=== PATIENT | male | born 2005 | race Caucasian/White ===

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

== ENCOUNTER 2025-01-17 10:27 | Outpatient (REF) | payer MEDICAID, SELFPAY ==
--- OUTSIDE RECORDS SUMMARY | 2025-01-17 12:09 | XMS_ITS | Clinical Summary ---
Author Organization [employer] Address [address] [facility] [address] [place] [address] Care Team Providers Care Wood Scrap Handler Name Role Phone Cat Vanegas MD Primary Care Provider [phone] Allergies No known active allergies Medications albuterol 108 (90 Base) MCG/ACT inhaler Inhale 2 puffs every 4 (four) hours if needed for wheezing or shortness of breath. 18 g 1 07/27/20 23 Active loratadine (Claritin) 10 MG tabletIndications: Rash Take 1 tablet (10 mg) by mouth Once per day. 30 tablet 3 12/21/19 25 026 Active SUMAtriptan (Imitrex) 25 MG tabletIndications: Chronic nonintractable headache, unspecified headache type Take 1 tablet (25 mg) by mouth 1 (one) time if needed for migraine for up to 9 doses. May repeat dose once in 2 hours if no relief. Do not exceed 2 doses in 24 hours. Take with naproxen 9 tablet 12/21/19 25 Active naproxen (Naprosyn) 500 MG tabletIndications: Chronic nonintractable headache, unspecified headache type Take 1 tablet (500 mg) by mouth 2 times daily. At onset of headache with sumatriptan. Take with food 60 tablet 12/21/19 25 025 Active cetirizine (ZyrTEC) 10 MG tabletIndications: Rash Take 1 tablet (10 mg) by mouth Once per day. Prn. 30 tablet 10/04/19 25 025 Discontin ued(Alter warner therapy) Active Problems Problem Noted Date Diagnosed Date Mild intermittent asthma without complication Encounters Date Type Department Care Team Description 01/17/2025 10:00 AM EDT Office Visit [facility] [address] [place] [address] Pradip Rebollar MD Viral URI (Primary Dx) 01/17/2025 Travel 12/20/2024 4:00 PM EDT Office Visit [facility] [address] [place] [address] Adelia Maldonado NP Rash (Primary Dx); Chronic nonintractable headache, unspecified headache type 12/20/2024 Travel 10/19/2024 Population Health Risk Score [facility] () Department [address] [place] [id number] Provider, Population Health Generic from Last 3 Months Social History Tobacco Use Types Packs/Day Years Used Date Smoking Tobacco: Never Smokeless Tobacco: Never Tobacco Cessation:Counseling Given: Not Answered Sex and Gender Information Value Date Recorded Sex Assigned at Male 06/07/2022 10:17 AM EDT Legal Sex Male 10:17 AM EDT Gender Identity Male 06/07/2022 10:17 AM EDT Sexual Orientation Straight 06/07/2022 10 :17 AM EDT Last Filed Vital Signs Vital Sign Reading Time Taken Comments Blood Pressure 130/80 01/17/2025 9:59 AM EDT Pulse 90 01/17/2025 9:59 AM EDT Temperature 34.8 ??C (94.7 ??F) 01/17/2025 9:59 AM ED T Respiratory Rate 18 01/17/2025 9:59 AM EDT Oxygen Saturation 98% 01/17/2025 9:59 AM EDT Inhaled Oxygen Concentration - - Weight 87.7 kg (193 lb 6.4 oz) 01/17/2025 9:59 A M EDT Height 172.7 cm (5' 8 ) 01/17/2025 9:59 AM EDT Body Mass Index 29.41 01/17/2025 9:59 AM EDT Plan of Treatment Upcoming Encounters Date Type Department Care Team (Late st Contact Info) Description 03/28/2025 9:00 AM EDT Office Visit [facility] [address] [place] [address] Felipa Cardoza, OD [address] [place] [address] Health Maintenance Due Date Last Done Comments Chlamydia and Gonorrhea Screening 2004 Depression Screening 2004 HIV Screening 2004 SDOH Screening 2004 Disability Screening 2004 Hepatitis B Vaccines (4 of 4 - 4-dose series) 2004 2004, 2004, 2004 Alcohol/Substance Use Screening 2016 Family Planning (PISQ) 2019 Meningococcal B Vaccine (1 of 2 - Standard) 2020 Hepatitis C Screening 2022 Pneumococcal Vaccine: Pediatrics (0 to 5 Years) and At-Risk Patients (6 to 49) Years) (1 of 2 - PCV) 2023 08/03/2005, 2004, 2004, Additional history exists COVID-19 Vaccine (4 - 2023- season) 2024 09/23/2021, 03/17/2021, 02/24/2021 Influenza Vaccine (Season Ended) 2025 07/31/2020, 04/23/2016, 11/05/2015, Additional history exists DTaP/Tdap/Td Vaccines (7 - Td or Tdap) 11/04/2025 11/05/2015, 09/03/2008, 08/03/2005, Additional history exists Tobacco Screening 12/20/2025 12/20/2024 Zoster Vaccines (1 of 2) 2054 RSV Patients and Patients Aged 60 years or older (1 - 1-dose 75+ series) 2079 HIB Vaccines Completed 08/03/2008, 08/2004, 2004, Additional history exists IPV Vaccines Completed 09/03/2008, 08/2004, 2004, Additional history exists Hepatitis A Vaccines Completed 01/15/2013, 05/18/20 12 HPV Vaccines Completed 01/04/2017, 12/08, 11/05/2015 Meningococcal Vaccine Completed 07/31/2020, 016 RSV under 20 months Aged Out No longe r eligible based on patient's age to complete this topic Rotavirus Vaccines Aged Out No longer eligible based on patient's age to complete this topic Procedures Procedure Name Priority Date/Time Associated Diagnosis Comments POC HARRELL ID NOW STREP A Routine 01/17/2025 10:13 AM EDT Viral URI POCT INFLUENZA B (ID NOW RAPID MOLECULAR) Routine 01/17/2025 10:13 AM EDT Viral URI POCT INFLUENZA A (ID NOW RAPID MOLECULAR) Routine 01/17/2025 10:13 AM EDT Viral URI POCT COVID-19 AG HARRELL ID NOW Routine 01/17/2025 10:12 AM EDT Viral URI from Last 3 Months Results * POCT Rapid Influenza B HARRELL ID NOW (01/17/2025 10:13 AM EDT) Influenza B Negative Negative, Indeterminate [facility] QC Media Lot # [id number] [facility] Lot# Expiration Date [facility] Swab 01/17/2025 10:1 3 AM EDT Pradip Rebollar MD POINT OF CARE TEST ENTER/EDIT OR DERABLES Edited Result - Final [facility] [address] [place] [phone] * POCT Rapid Influenza A HARRELL ID NOW (01/17/2025 10:13 AM EDT) Influenza A Negative Negative, Indeterminate [facility] QC Media Lot # [id number] [facility] Lot# Expiration Date [address] [facility] Swab 01/17/2025 10:1 3 AM EDT us Pradip Keturah MD POINT OF CARE TEST ENTER/EDIT OR DERABLES Final Result [facility] [address] [place] [phone] * POCT Rapid Strep A HARRELL ID NOW (01/17/2025 10:13 AM EDT) Rapid Strep A Screen Negative Negative, None Detected QC Media Lot # [id number] Lot# Expiration Date [id number] Swab 01/17/2025 10:1 3 AM EDT us Pradip Rebollar MD POINT OF CARE TEST ENTER/EDIT OR DERABLES Edited Result - Final * POCT Rapid Covid-19 HARRELL ID NOW (01/17/2025 10:12 AM EDT) Coronavirus Antigen PCR Negative Negative, Indeterminate, None Detected, Invalid, Specimen unsatisfactory for evaluation, Weakly Positive, 2+ [facility] Media Lot # [id number] Lot# Expiration Date [id number] Swab 01/17/2025 10:1 2 AM EDT us Pradip Rebollar MD POINT OF CARE TEST ENTER/EDIT OR DERABLES Final Result from Last 3 Months Insurance HSN FULL Care Teams Wood Scrap Handler Relationship Specialty Start Date End Date Cat Vanegas MD [address] [place] [phone] PCP - General Family Medicine 10/04/23
[2025-01-17 12:18] LABS: Monotest Negative (Negative)
== END 2025-01-17 10:28 | disposition home or self-care (01) ==
LOC: HO.HHCL 10:27
PROVIDERS: Visit Provider Family Medicine
DX: J06.9 Acute upper respiratory infection, unspecified (principal)
CPT/HCPCS: 36415; 86308

== ENCOUNTER 2025-05-15 11:45 | Outpatient (REF) | payer OTHER, SELFPAY ==
[2025-05-15 14:02] LABS: Cholesterol 162 mg/dL (<200); HDL Cholesterol 48 mg/dL (>40); Triglycerides 88 mg/dL (<150)
== END 2025-05-15 11:46 | disposition home or self-care (01) ==
LOC: HO.HHCL 11:45
PROVIDERS: PCP Nurse Practitioner; Visit Provider Nurse Practitioner
DX: Z13.6 Encounter for screening for cardiovascular disorders (principal)
CPT/HCPCS: 36415; 80061